=== PATIENT | male | born 1990 | race Caucasian/White ===

== ENCOUNTER 2016-12-02 23:14 | Emergency (ER) | payer OTHER ==
[~2016-12-02] VITALS: Ht 160 cm; Wt 84.1 kg
[2016-12-03] MEDS ORDERED: HYDROmorphone HCL 1 MG/ML SYRINGE (J1170) IM ONE (03:15)
[2016-12-03] MEDS ORDERED: NORCO 5/325MG TABLET (BULK FOR ED) PO ONE (03:15)
[2016-12-03] MEDS ORDERED: OXYCODONE/APAP 5MG/325MG(BULK FOR ED) 1 TABLET PO ONE ×2 (03:30)
[2016-12-03 03:34] VITALS: BP 126/54
--- NOTE | 2016-12-03 08:31 | REP ---
Clinical: Trauma. Technique: AP and axial views of the left clavicle. Findings: Comminuted mid clavicular shaft fracture noted without subcutaneous emphysema or radiodense foreign body. Acromioclavicular joint and glenohumeral joints appear intact. Impression: Closed comminuted fracture of the mid clavicular shaft. Signed by Bishop Schaefer MD 12/03/2016 08:22 A
== END 2016-12-03 03:36 | disposition home or self-care (01) ==
LOC: M ED 23:14
DX: S42.022A Displaced fracture of shaft of left clavicle, initial encounter for closed fracture (principal); V86.59XA Driver of other special all-terrain or other off-road motor vehicle injured in nontraffic accident, initial encounter; Y92.410 Unspecified street and highway as the place of occurrence of the external cause; Y93.89 Activity, other specified; Y99.8 Other external cause status; F17.210 Nicotine dependence, cigarettes, uncomplicated

== ENCOUNTER 2017-04-06 07:30 | Inpatient (IN) | payer OTHER ==
[~2017-04-06] VITALS: Ht 160 cm; Wt 83.9 kg
[~2017-04-06 07:30] MED LIST: OXYC1TAB23 PO
[2017-04-06] MEDS ORDERED: VANCOMYCIN HCL 1,000 MG, VIAL MATE ADAPTER 1 EACH in D5W 250 ML IV ONE (16:00)
[2017-04-06] MEDS ORDERED: LR 1,000 ML IV ONE (16:00)
[2017-04-06 16:02] LABS: MEAN CORPUSCULAR HEMOGLOBIN 31.8 pg (27.0-33.0); MEAN CORPUSCULAR HGB CONC 34.1 g/dl (32.0-36.5); MEAN CORPUSCULAR VOLUME 93.1 fl (80.0-96.0); PLATELET COUNT, AUTOMATED 283 10^3/uL (150-450); RED CELL DISTRIBUTION WIDTH 11.5 % (11.5-14.5); WHITE BLOOD COUNT 9.3 10^3/uL (4.0-10.0)
[2017-04-06 16:33] LABS: ERYTHROCYTE SEDIMENTATION RATE 54 mm/hr (0-15)
[2017-04-06 16:46] LABS: ALBUMIN 3.6 GM/DL (3.2-5.2); ALBUMIN/GLOBULIN RATIO 1.06 (1.00-1.93); ALKALINE PHOSPHATASE 82 U/L (45-117); ALT/SGPT 34 U/L (12-78); ANION GAP 9 MEQ/L (8-16); AST/SGOT 16 U/L (7-37); BILIRUBIN,TOTAL 0.5 MG/DL (0.2-1.0); BLOOD UREA NITROGEN 13 MG/DL (7-18); CALCIUM LEVEL 9.1 MG/DL (8.5-10.1); CARBON DIOXIDE LEVEL 27 MEQ/L (21-32); CHLORIDE LEVEL 106 MEQ/L (98-107); CREATININE FOR GFR 0.83 MG/DL (0.70-1.30); GLOMERULAR FILTRATION RATE > 60.0 (>60); GLUCOSE, FASTING 90 MG/DL (70-105); POTASSIUM SERUM 4.1 MEQ/L (3.5-5.1); SODIUM LEVEL 142 MEQ/L (136-145)
[2017-04-06] MEDS ORDERED: BUPIVACAINE HCL 0.5% 10 ML VIAL As Ordered ONE (17:25)
[2017-04-06] MEDS ORDERED: LIDOCAINE 2% MDV 20 ML VIAL As Ordered ONE (17:26)
[2017-04-06] MEDS ORDERED: BACITRACIN PWD 50,000 UNITS VIAL As Ordered ONE (17:26)
[2017-04-06] MEDS ORDERED: KETOROLAC 30 MG/ML VIAL (J1885) IV PRN (17:30)
[2017-04-06] MEDS ORDERED: ONDANSETRON 4MG/2ML VIAL (J2405) IV PRN ×2 (17:30→19:45)
[2017-04-06] MEDS ORDERED: PROPOFOL 200 MG/20 ML VIAL As Ordered ONE ×2 (17:33→18:27)
[2017-04-06] MEDS ORDERED: LIDOCAINE 2% INJ 100 MG/5 ML SDV (FOR ANES.) As Ordered ONE (17:33)
[2017-04-06] MEDS ORDERED: ONDANSETRON 4MG/2ML VIAL (J2405) As Ordered ONE (17:34)
[2017-04-06] MEDS ORDERED: dexameTHASONE 4 MG/ML 1ML VIAL (J1100) As Ordered ONE (17:34)
[2017-04-06] MEDS ORDERED: MIDAZOLAM INJ 2 MG/2 ML VIAL (J2250) As Ordered ONE (17:34)
[2017-04-06] MEDS ORDERED: fentaNYL 100 MCG/2 ML INJECTION (J3010) As Ordered ONE (17:34)
[2017-04-06] MEDS ORDERED: VANCOMYCIN 1000 MG/20 ML VIAL (J3370) As Ordered ONE (17:56)
[2017-04-06] MEDS ORDERED: HYDROmorphone HCL 2 MG/ML 1ML VIAL (J1170) As Ordered ONE (18:25)
[2017-04-06] MEDS ORDERED: KETOROLAC 60 MG/2 ML VIAL (J1885) As Ordered ONE (19:03)
[2017-04-06] MEDS ORDERED: LR 1,000 ML IV SCH (19:45)
[2017-04-06] MEDS ORDERED: PERCOCET 5MG/325MG TAB PO PRN (19:45)
[2017-04-06] MEDS ORDERED: METOCLOPRAMIDE INJ 10MG/2ML VIAL (J2765) IV PRN (19:45)
[2017-04-06] MEDS: fentaNYL 100 MCG/2 ML INJECTION (J3010) IV PRN ×2 (20:12→20:17)
[2017-04-06 21:00] VITALS: BP 133/81
[2017-04-06] MEDS: DOCUSATE SODIUM 100 MG CAP PO SCH (21:00)
[2017-04-06] MEDS: VANCOMYCIN HCL 1,000 MG, VIAL MATE ADAPTER 1 EACH in D5W/0.2% SODIUM CHLORIDE 250 ML IV SCH (21:29)
[2017-04-06 21:30] VITALS: BP 139/71
[2017-04-06] MEDS: PERCOCET 5MG/325MG TAB PO PRN (21:30)
[2017-04-06 22:00] VITALS: BP 118/61
[2017-04-06] MEDS: NICOTINE 21MG/24HR 1 EA TRANSDERMAL TD SCH (22:59)
[2017-04-06 23:00] VITALS: BP 123/67
[2017-04-07] VITALS (7 sets, daily range): BP systolic 103–132; BP diastolic 58–75
[2017-04-07] MEDS: PERCOCET 5MG/325MG TAB PO PRN ×4 (02:16→22:28)
[2017-04-07] MEDS: VANCOMYCIN HCL 1,000 MG, VIAL MATE ADAPTER 1 EACH in D5W/0.2% SODIUM CHLORIDE 250 ML IV SCH ×2 (06:23→14:24)
--- NOTE | 2017-04-07 09:11 | IPNPDOC ---
Date Seen The patient was seen on 04/07/17. Progress Note SUBJECTIVE: Patient is a 26 y/o male POD1 s/p left clavicle I&D for acute postop wound infection after revision clavicle ORIF. Seen and examined at bedside. No acute overnight events. No complaints. OBJECTIVE PHYSICAL EXAMINATION: VITAL SIGNS: Please see below. GENERAL: well nourished male, NAD HEENT: Normocephalic, atraumatic CARDIOVASCULAR: 2+ radial pulse, BCR all digits LUE. RESPIRATORY: non labored breathing. EXTREMITIES: left shoulder dressing clean, dry, intact. arm in sling. neurovascularly intact all distributions LLE LABORATORY DATA: Please see below. MICROBIOLOGY: Please see below. Cultures pending DVT prophylaxis ordered?: SCDs ASSESSMENT: 26 y/o male s/p above procedure, doing well PLAN: 1. NWB LUE 2. Continue IV vancomycin 1g q8h. will adjust dose based on trough 3. will follow wound cultures. 4. Infectious disease consulted, will await culture data 5. CBC, ESR, CRP tomorrow DISPOSITION: d/c home when abx regimen determined. VS, I&O, 24H, Fishbone Vital Signs/I&O Vital Signs Date Time Temp Pulse Resp B/P (MAP) Pulse Ox O2 Delivery O2 Flow Rate FiO2 04/07/17 06:30 18 04/07/17 02:00 98.0 86 105/64 (78) 95 Room Air 04/06/17 20:10 2 Laboratory Data 24H LABS Laboratory Tests 2 04/06/17 15:49: Nucleated Red Blood Cells % (auto) 0.0, Erythrocyte Sedimentation Rate 54H, Anion Gap 9, Glomerular Filtration Rate > 60.0, Blood Urea Nitrogen 13, Creatinine 0.83, Sodium Level 142, Potassium Level 4.1, Chloride Level 106, Carbon Dioxide Level 27, Calcium Level 9.1, Aspartate Amino Transf (AST/SGOT) 16 , Alanine Aminotransferase (ALT/SGPT) 34, Alkaline Phosphatase 82, Total Bilirubin 0.5, Total Protein 7.0, Albumin 3.6, C-Reactive Protein, Quantitative 12.10H, Albumin/Globulin Ratio 1.06 CBC/BMP Laboratory Tests 04/06/17 15:49 Red Blood Count 4.50, Mean Corpuscular Volume 93.1, Mean Corpuscular Hemoglobin 31.8, Mean Corpuscular Hemoglobin Concent 34.1, Red Cell Distribution Width 11.5 , Calcium Level 9.1, Aspartate Amino Transf (AST/SGOT) 16, Alanine Aminotransferase (ALT/SGPT) 34, Alkaline Phosphatase 82, Total Bilirubin 0.5, Total Protein 7.0, Albumin 3.6 Microbiology Microbiology 04/06/17 Wound Culture, Received Pending 04/06/17 Anaerobic Culture, Received Pending 04/06/17 Wound Culture, Received Pending 04/06/17 Anaerobic Culture, Received Pending HOMER MENDEZ MD Apr 07, 2017 09:11
[2017-04-07] MEDS: CelecoXIB (CeleBREX) 100 MG CAP PO SCH (11:08)
[2017-04-07] MEDS: NICOTINE 21MG/24HR 1 EA TRANSDERMAL TD SCH (11:08)
[2017-04-07] MEDS: DOCUSATE SODIUM 100 MG CAP PO SCH ×2 (11:10→20:11)
--- NOTE | 2017-04-07 12:48 | PHACANCOPD ---
PHARMACY VANCOMYCIN DOSING Pt Demographics Demographics Patient Age:26 , Weight:79.500 , Gender: male Adjusted Body Weight Date: 04/07/17, Adjusted Body Weight: Kg Events Past 24 Hours Events Past 24 Hours: YES: Pending Diagnostics Vancomycin Vancomycin indication: BONE/JOINT INFECTION Vancomycin Target Ranges: 15-20 mcg/ml Vancomycin Load Y/N: Yes Load Dose Date Time Vancomycin Load Dose: 2g Date: 04/06/17 Time: 1g@1822, then 1g@ 22 Vancomycin Dose Date: 04/07/17. Current Vancomycin Dose: [1g IV Q8H] Intermittent Dosing?: No Labs Labs Item Value Date Time White Blood Count 9.3 10^3/uL 04/06/17 1549 Erythrocyte Sedimentation Rate 54 mm/hr H 04/06/17 1549 Creatinine 0.83 MG/DL 04/06/17 1549 C-Reactive Protein, Quantitative 12.10 MG/DL H 04/06/17 1549 Micro Microbiology 04/06/17 Wound Culture, Received Pending 04/06/17 Anaerobic Culture, Received Pending 04/06/17 Wound Culture - Preliminary, Resulted Staphylococcus Aureus 04/06/17 Anaerobic Culture, Resulted Pending Creatinine Clearance Date:04/07/17. Estimated Creatinine Clearance: [>100ml/min]. Pending Labs Vancomycin trough scheduled 04/07/17 @2100 Assessment and Plan Maintaining Current Dose?: Yes Reason for dose change: No Dose Change Pharmacist Note Pharmacist Note Date: 04/07/17. Pharmacist note: Day #2 empiric vancomycin tx initiated with a 2g loading dose followed by a maintenance regimen of 1g IV Q8H for the treatment of a bone/joint infection in the area of the left clavicle - aiming for a goal trough of 15-20mcg/ml. WBC is WNL, ESR and CRP are elevated, and the patient is afebrile. Preliminary wound culture results are growing heavy staph aureus. Final results are still pending. A vancomycin trough has been scheduled for 04/07/17 @2100. We will continue to monitor and make dose adjustments if needed. JOEY BLAKE PHARMACY Apr 07, 2017 12:48
--- NOTE | 2017-04-07 21:45 | PHACANCOPD ---
PHARMACY VANCOMYCIN DOSING Pt Demographics Demographics Patient Age:26 , Weight:79.500 , Gender: male Adjusted Body Weight Date: 04/07/17, Adjusted Body Weight: Kg Events Past 24 Hours Events Past 24 Hours: NO: Dialysis, Diuretic Therapy, Change in CrCl, Fever, Elevation in WBC, Pending Diagnostics, Pending Procedures, Other Vancomycin Vancomycin indication: BONE/JOINT INFECTION Vancomycin Target Ranges: 15-20 mcg/ml Vancomycin Load Y/N: Yes Load Dose Date Time Vancomycin Load Dose: 2g Date: 04/06/17 Time: 1g@1822, then 1g@ 22 Vancomycin Dose Date: 04/07/17. Current Vancomycin Dose: [1g IV Q6H] Intermittent Dosing?: No Labs Labs Item Value Date Time White Blood Count 9.3 10^3/uL 04/06/17 1549 Creatinine 0.83 MG/DL 04/06/17 1549 Blood Urea Nitrogen 13 MG/DL 04/06/17 1549 Vital Signs Label Value Date Time Patient Temperature 99.2 degrees F 04/07/17 1600 Temperature Source Temporal 04/07/17 1600 Micro Microbiology 04/06/17 Wound Culture, Received Pending 04/06/17 Anaerobic Culture, Received Pending 04/06/17 Wound Culture - Preliminary, Resulted Staphylococcus Aureus 04/06/17 Anaerobic Culture, Resulted Pending Creatinine Clearance Date:04/07/17. Estimated Creatinine Clearance: [>100ml/min]. Pending Labs Vancomycin trough scheduled 04/08/17 @1500 Assessment and Plan Maintaining Current Dose?: No Reason for dose change: Trough too low Pharmacist Note Pharmacist Note Date: 04/07/17. Pharmacist note: Trough of 12.8 is below target range. Dose increased to 1000mg q6h with a trough ordered for 04-08 @1500. Will continue to monitor and make adjustments as needed. TERI CARRILLO PHARMACY Apr 07, 2017 21:45
[2017-04-07] MEDS: VANCOMYCIN HCL 1,000 MG, VIAL MATE ADAPTER 1 EACH in D5W 250 ML IV SCH (22:27)
[2017-04-08 00:09] VITALS: BP 110/88
[2017-04-08] MEDS: VANCOMYCIN HCL 1,000 MG, VIAL MATE ADAPTER 1 EACH in D5W 250 ML IV SCH ×4 (04:12→23:54)
[2017-04-08 06:33] LABS: MEAN CORPUSCULAR HEMOGLOBIN 32.1 pg (27.0-33.0); MEAN CORPUSCULAR HGB CONC 34.7 g/dl (32.0-36.5); MEAN CORPUSCULAR VOLUME 92.6 fl (80.0-96.0); PLATELET COUNT, AUTOMATED 295 10^3/uL (150-450); RED CELL DISTRIBUTION WIDTH 11.6 % (11.5-14.5); WHITE BLOOD COUNT 9.8 10^3/uL (4.0-10.0)
[2017-04-08 07:20] LABS: ERYTHROCYTE SEDIMENTATION RATE 48 mm/hr (0-15)
[2017-04-08 08:00] VITALS: BP 108/64
--- NOTE | 2017-04-08 08:55 | IPNPDOC ---
Date Seen The patient was seen on 04/08/17. Progress Note SUBJECTIVE: Patient is a 26 y/o male POD2 s/p left clavicle I&D for acute postop wound infection after revision clavicle ORIF. Seen and examined at bedside. No acute overnight events. No complaints. OBJECTIVE PHYSICAL EXAMINATION: VITAL SIGNS: Please see below. GENERAL: well nourished male, NAD HEENT: Normocephalic, atraumatic CARDIOVASCULAR: 2+ radial pulse, BCR all digits LUE. RESPIRATORY: non labored breathing. EXTREMITIES: left shoulder wound clean, dry, intact. No drainage from wound. Minimal surrounding erythema. No induration. Arm in sling. neurovascularly intact all distributions LLE LABORATORY DATA: CRP 2.3 down from 12 preop. MICROBIOLOGY: Cultures finalized MSSA DVT prophylaxis ordered?: SCDs ASSESSMENT: 26 y/o male s/p above procedure, with clinical and laboratory evidence of resolving post op infection PLAN: 1. NWB LUE 2. Continue IV vancomycin for now. Will adjust home regimen based on ID recommendations. 3. Will order PICC line in anticipation of extended IV abx 4. Repeat CBC, ESR, CRP sunday am if still in house 5. patient may shower. daily dry dressing changes LUE DISPOSITION: d/c home when abx regimen determined. VS, I&O, 24H, Fishbone Vital Signs/I&O Vital Signs Date Time Temp Pulse Resp B/P (MAP) Pulse Ox O2 Delivery O2 Flow Rate FiO2 04/08/17 00:09 99.5 70 18 110/88 (95) 98 Room Air 04/06/17 20:10 2 Laboratory Data 24H LABS Laboratory Tests 2 04/07/17 20:58: Vancomycin Level Trough 12.8 04/08/17 06:19: Nucleated Red Blood Cells % (auto) 0.0, Erythrocyte Sedimentation Rate 48H, C- Reactive Protein, Quantitative 2.46H CBC/BMP Laboratory Tests 04/08/17 06:19 Red Blood Count 3.77 L, Mean Corpuscular Volume 92.6, Mean Corpuscular Hemoglobin 32.1, Mean Corpuscular Hemoglobin Concent 34.7, Red Cell Distribution Width 11.6 Microbiology Microbiology 04/06/17 Wound Culture - Final, Complete Staphylococcus Aureus 04/06/17 Anaerobic Culture - Final, Complete 11/10/17 Wound Culture - Final, Complete Staphylococcus Aureus 04/06/17 Anaerobic Culture - Final, Complete HOMER MENDEZ MD Apr 08, 2017 08:55
[2017-04-08] MEDS: DOCUSATE SODIUM 100 MG CAP PO SCH ×2 (09:47→20:48)
--- NOTE | 2017-04-08 10:36 | RO ---
DATE OF PROCEDURE: 04/06/2017 PREOPERATIVE DIAGNOSIS: Left clavicle acute postop infection. POSTOPERATIVE DIAGNOSIS: Left clavicle acute postop infection. PROCEDURE PERFORMED: Left clavicle irrigation and debridement. SURGEON: Bryce Cabello MD APRICOT PACKER: None. ANESTHESIA: General endotracheal anesthesia and local. ANTIBIOTICS: 1 gram of vancomycin given after culture taken. ESTIMATED BLOOD LOSS: 50 mL. MATERIALS SENT TO THE LABS: Two intraoperative wound culture swabs and one tissue culture from left clavicle. COMPLICATIONS: None. INDICATION FOR PROCEDURE: Ian Trejo is a 26-year-old right hand dominant male who sustained a left clavicle fracture in November of 2016 and underwent open reduction internal fixation (ORIF). His postoperative course was complicated by hardware failure for which he underwent revision clavicle ORIF two weeks ago. He had a small wound dehiscence that was treated with local wound care that progressed and the patient developed acute purulence with wound breakdown. The patient had labs that showed a white count of 9.3, ESR of 54, CRP of 12. He was afebrile with stable vital signs. Given the acute purulent drainage from the wound, I discussed with the patient that this required open irrigation and debridement. We will treat the infection and attempt to retain hardware until the fracture heals. The patient expressed understanding of this and provided informed consent for left clavicle irrigation and debridement. Informed consent was obtained. INTRAOPERATIVE FINDINGS: There was significant purulent discharge that was centered on the area of the mid shaft clavicle a the site of bone grafting with demineralized bone matrix. The fracture fixation remained stable. DESCRIPTION OF PROCEDURE: The patient was positively identified in the preop holding area where the surgical site was marked. He was brought to the operating room where he was placed under general endotracheal anesthesia. He was positioned supine on a regular table with all bony prominences appropriately padded. Sequential compression devices (SCD) were placed on the lower extremities for deep vein thrombosis (DVT) prophylaxis. He was prepped and draped in the usual sterile fashion. A final time out was performed. I incised directly over the previous incision. There was immediate purulence from the central portion of the wound. I obtained cultures and then the patient was given 1 gram of vancomycin. I then performed a thorough irrigation of skin, subcutaneous tissue and fascia. The bone appeared healthy. The demineralized bone matrix that was put in from his previous bone grafting was all removed. Unhealthy skin edges were also sharply debrided with a knife. After thorough debridement, the wound was then irrigated with 12 liters of normal saline. After irrigation, the wound was then closed primarily with a few interrupted #2- 0 PDS sutures in the subcutaneous layer to provide coverage over the plate. The skin was closed with interrupted #3-0 nylon sutures in a horizontal mattress fashion. Sterile dressings were applied and this ended the procedure. I was present and scrubbed in for all portions of the case. POSTOPERATIVE PLAN: The patient will be non-weightbearing to the left upper extremity. He will be admitted to the hospital floor for IV antibiotics. He will remain in the hospital while we await culture results. Infectious disease has been consulted for guidance with antibiotic management. DEJON
[2017-04-08] MEDS: NICOTINE 21MG/24HR 1 EA TRANSDERMAL TD SCH (10:59)
[2017-04-08] MEDS: CelecoXIB (CeleBREX) 100 MG CAP PO SCH (11:00)
[2017-04-08] MEDS: PERCOCET 5MG/325MG TAB PO PRN ×2 (11:01→19:08)
[2017-04-08 16:00] VITALS: BP 112/70
--- NOTE | 2017-04-08 18:56 | PHACANCOPD ---
PHARMACY VANCOMYCIN DOSING Pt Demographics Demographics Patient Age:26 , Weight:79.500 , Gender: male Adjusted Body Weight Date: 04/07/17, Adjusted Body Weight: Kg Events Past 24 Hours Events Past 24 Hours: NO: Dialysis, Diuretic Therapy, Change in CrCl, Fever, Elevation in WBC, Pending Diagnostics, Pending Procedures, Other Vancomycin Vancomycin indication: BONE/JOINT INFECTION Vancomycin Target Ranges: 15-20 mcg/ml Vancomycin Load Y/N: Yes Load Dose Date Time Vancomycin Load Dose: 2g Date: 04/06/17 Time: 1g@1822, then 1g@ 22 Vancomycin Dose Date: 04/08/17. Current Vancomycin Dose: [1g IV Q8H] Intermittent Dosing?: No Labs Labs Item Value Date Time White Blood Count 9.8 10^3/uL 04/08/17 0619 Creatinine 0.83 MG/DL 04/06/17 1549 Blood Urea Nitrogen 13 MG/DL 04/06/17 1549 Vancomycin Level Trough 27.6 UG/ML *H 04/08/17 1505 Vital Signs Label Value Date Time Patient Temperature 98.7 degrees F 04/08/17 1600 Temperature Source Temporal 04/08/17 1600 Micro Microbiology 04/06/17 Wound Culture - Final, Complete Staphylococcus Aureus 04/06/17 Anaerobic Culture - Final, Complete 04/06/17 Wound Culture - Final, Complete Staphylococcus Aureus 04/06/17 Anaerobic Culture - Final, Complete Creatinine Clearance Date:04/07/17. Estimated Creatinine Clearance: [>100ml/min]. Pending Labs Vancomycin trough scheduled 04/09/17 @1500 Assessment and Plan Maintaining Current Dose?: No Reason for dose change: Trough too high Pharmacist Note Pharmacist Note Date: 04/07/17. Pharmacist note: Trough of 27.8 is above target range dose reduced back to 1000mg q8h. Trough ordered for 04-09 @1500. Will continue to monitor and make adjustments as needed. TERI CARRILLO PHARMACY Apr 08, 2017 18:56
[2017-04-08 20:00] VITALS: BP 128/68
[2017-04-09 04:00] VITALS: BP 104/72
[2017-04-09] MEDS: CelecoXIB (CeleBREX) 100 MG CAP PO SCH (07:53)
[2017-04-09] MEDS: VANCOMYCIN HCL 1,000 MG, VIAL MATE ADAPTER 1 EACH in D5W 250 ML IV SCH (07:53)
[2017-04-09] MEDS: NICOTINE 21MG/24HR 1 EA TRANSDERMAL TD SCH (07:53)
[2017-04-09] MEDS: DOCUSATE SODIUM 100 MG CAP PO SCH ×2 (07:54→20:48)
[2017-04-09 08:00] VITALS: BP 115/63
[2017-04-09] MEDS: SODIUM CHLORIDE 0.9% INJ 10 ML SYR IV PRN ×2 (13:58→22:47)
[2017-04-09 16:00] VITALS: BP 161/80
--- NOTE | 2017-04-09 16:26 | IPNPDOC ---
Date Seen The patient was seen on 04/09/17. Progress Note SUBJECTIVE: Patient is a 26 y/o male POD3 s/p left clavicle I&D for acute postop wound infection after revision clavicle ORIF. Seen and examined at bedside. No acute overnight events. No complaints. Patient had PICC line placed today. OBJECTIVE PHYSICAL EXAMINATION: VITAL SIGNS: Please see below. GENERAL: well nourished male, NAD HEENT: Normocephalic, atraumatic CARDIOVASCULAR: 2+ radial pulse, BCR all digits LUE. RESPIRATORY: non labored breathing. EXTREMITIES: left shoulder wound clean, dry, intact. No drainage from wound. Minimal surrounding erythema. No induration. Arm in sling. neurovascularly intact all distributions LLE LABORATORY DATA: CRP 2.3 yesterday down from 12 preop. MICROBIOLOGY: Cultures finalized MSSA DVT prophylaxis ordered?: SCDs ASSESSMENT: 26 y/o male s/p above procedure, with clinical and laboratory evidence of resolving post op infection PLAN: 1. NWB LUE 2. Patient evaluated by ID, vancomycin d/c'd. Changed to Ancef 2g IV q8h. Likely 6 weeks of treatment. 3. Patient counseled that we will aim to retain hardware until fracture has healed provided infection resolves. 4. patient may shower. daily dry dressing changes LUE DISPOSITION: d/c home tomorrow VS, [facility] Vital Signs/I&O Vital Signs Date Time Temp Pulse Resp B/P (MAP) Pulse Ox O2 Delivery O2 Flow Rate FiO2 04/09/17 08:00 98.3 69 16 115/63 (80) 97 Room Air 04/06/17 20:10 2 I&O- Last 24 Hours up to 6 AM 04/10/17 06:02 Intake Total 800 ml Output Total 275 ml Balance 525 ml Laboratory Data 24H LABS Laboratory Tests 2 04/08/17 21:02: Vancomycin Level Trough 24.3H Microbiology Microbiology 04/06/17 Wound Culture - Final, Complete Staphylococcus Aureus 04/06/17 Anaerobic Culture - Final, Complete 04/06/17 Wound Culture - Final, Complete Staphylococcus Aureus 04/06/17 Anaerobic Culture - Final, Complete HOMER MENDEZ MD Apr 09, 2017 16:27
--- NOTE | 2017-04-09 17:00 | REP ---
Procedure: PICC line insertion with Mauro-Cameron The procedure was performed under the direct supervision of Dr. Mari. The risks and benefits of the procedure were explained to the patient and informed consent was obtained. The right basilic vein was localized using ultrasound guidance. The skin was prepped and draped in a sterile fashion. 2% lidocaine was used as a local anesthetic. Using ultrasound guidance the basilic vein was cannulated and a 0.018 guidewire was inserted and advanced to the SVC using fluoroscopic guidance. The needle was removed and a 4.5 Iranian dilator and peel-away sheath was inserted over the guide wire. A 4.5 Iranian single lumen catheter was cut to length of 42 cm. The dilator was removed and the catheter was inserted over the guide wire with the tip ending in the SVC. The peel-away sheath was removed and the catheter was flushed with heparinized saline as per Hospital protocol. The catheter was affixed to the skin and a sterile dressing was applied. The the patient tolerated the procedure well and there were no immediate complications. 0.2 minutes of fluoro time was utilized for this procedure. Reviewed by ROSSY Rossi 04/09/2017 04:49 PSigned by José Miguel Mari MD 04/09/2017 04:51 P
[2017-04-09] MEDS: SODIUM CHLORIDE 0.9% INJ 10 ML SYR IV SCH (18:17)
[2017-04-09] MEDS: PERCOCET 5MG/325MG TAB PO PRN (18:59)
[2017-04-10] VITALS: BP 132/74
--- NOTE | 2017-04-10 00:04 | CR ---
DATE: 04/09/2017 INFECTIOUS DISEASE CONSULTATION Asked to consult by Dr. Cabello for evaluation of postoperative wound infection. 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 The patient underwent open reduction, internal fixation that was complicated by hardware failure. He underwent revision of open reduction internal fixation at the end of February in [facility]. The patient noticed a wound dehiscence with purulent discharge and increasing pain. C-reactive protein (CRP) and sedimentation rate were elevated. The patient was taken to the operating room on 04/06/2017 where he had irrigation and debridement with retention of the hardware because the fracture had not healed. The patient was started on intravenous (IV) vancomycin and cultures were positive for methicillin-sensitive Staphylococcus aureus (MSSA) . He has been afebrile. He denies any nausea, vomiting or diarrhea. No abdominal pain. No fever or chills. The patient had a peripherally inserted central catheter (PICC) line placed today, and he is anxious to go home. ALLERGIES: ALMOND, COCONUT, NUTS, PEANUTS and PECANS MEDICATIONS: - heparin through the PICC line - vancomycin 1 gram IV every 8 hours - Celebrex 200 mg by mouth daily - Colace 100 mg by mouth twice a day - Zofran 4 mg IV every 6 hours as needed - Percocet 1-2 tablets every 6 hours as needed - Ketorolac 30 mg IV every 6 hours as needed - nicotine patch one daily. SOCIAL HISTORY: He is a soldier. He is . He has one child. He drinks socially and smokes a pack of cigarettes a day. He is willing to try to taper down. LABORATORY DATA: White count was 9.3 on admission, today 9.8, hemoglobin 12.1, hematocrit 34.9, platelets 48 down from 54, sodium 142, potassium 4.1, chloride 106, bicarbonate 27, BUN 13, creatinine 0.8, glucose 90m calcium 9.1, AST 16, ALT 34, alkaline phosphatase 82, CRP on admission was 12.1 down to 2.46, albumin 3.6. Vancomycin level on 04/08/2017 was 27.6, today it was 24.3. Wound cultures were positive for methicillin-sensitive Staphylococcus aureus (MSSA). IMAGING STUDIES: PICC line was placed on 04/09/2017 with no complication. On physical exam, temperature is 98.2, pulse 68, respirations 18, blood pressure 161/80, oxygen saturation 96% on room air. Heart: Normal S1, S2 with no murmurs, rubs or gallops. Lungs are clear. No wheezes, rales or rhonchi. Abdomen: Soft, nontender. No hepatosplenomegaly. Extremities: No clubbing, cyanosis or edema. Right arm has a PICC line. Left shoulder has an incision along the clavicle measuring about 15 cm, sutures in place. There is a tattoo along the incision. There is minimal tenderness and warmth. There is no drainage. IMPRESSION: Clavicular fracture in November of 2016 with hardware failure, status post second open reduction internal fixation (ORIF) done at the end of February, admitted now with postoperative wound infection 2 weeks later with culture positive for MSSA. The hardware was not removed because the fracture is not healed yet. Therefore, we will have to treat him with rifampin as well to treat the biofilm. PLAN: Discontinue IV vancomycin, start IV cefazolin 2 grams every 8 hours, add rifampin 600 mg by mouth daily. The patient will be treated for presumptive septic arthritis/osteomyelitis of the wound with 4 weeks of IV antibiotic, probably follow with some oral antibiotic as well depending on clinical improvement, sedimentation rate and CRP. Will monitor CBC, CRP, sedimentation rate weekly. The patient will follow up in my office in 2-3 weeks. I have consulted [facility] to help assist us with home IV antibiotics in anticipation for discharge home tomorrow.
[2017-04-10] MEDS: SODIUM CHLORIDE 0.9% INJ 10 ML SYR IV PRN (04:41)
[2017-04-10] MEDS: SODIUM CHLORIDE 0.9% INJ 10 ML SYR IV SCH (06:00)
[2017-04-10] MEDS ORDERED: CELE100C PO (07:38)
[2017-04-10] MEDS ORDERED: NICO21PAT TD (07:38)
[2017-04-10] MEDS ORDERED: PERCOCET PO (07:38)
[2017-04-10 08:00] VITALS: BP 116/72
[2017-04-10] MEDS: NICOTINE 21MG/24HR 1 EA TRANSDERMAL TD SCH (08:12)
[2017-04-10] MEDS: PERCOCET 5MG/325MG TAB PO PRN (08:12)
[2017-04-10] MEDS: CelecoXIB (CeleBREX) 100 MG CAP PO SCH (08:12)
[2017-04-10] MEDS: DOCUSATE SODIUM 100 MG CAP PO SCH (08:13)
--- NOTE | 2017-04-10 16:14 | DS.PDOC ---
Discharge Summary General Date of Admission Apr 06, 2017 at 15:28 Date of Discharge 04/10/2017 Attending Physician: HOMER MENDEZ MD Specialist/Consultants Involve: Danny Montejo MD Discharge Summary PROCEDURES PERFORMED DURING STAY: Left clavicle irrigation and debridement. ADMITTING DIAGNOSES: 1. Left clavicle post op hardware infection DISCHARGE DIAGNOSES: 1.same as above COMPLICATIONS/CHIEF COMPLAINT: Left Clavicle Wound Infection. 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 Patient developed wound dehiscence and subsequent acute purulent drainage 10 days after procedure and was admitted for treatment of this complication. HOSPITAL COURSE: Patient was admitted to the hospital on 06 Apr 2017 and underwent uneventful left clavicle I&D. He was admitted to the hospital for IV antibiotics and awaiting culture results. On HD 3, cultures finalized with MSSA. Patient had a PICC placed for emt intermediate antibiotic treatment. Infections disease was consulted for abx management. On POD 2 (HD3), patient has well healing wound, labratory markers had significantly improved, and patient was clinically better. He was afebrile and had no acute events during the entirety of the hospitalization. Home health IV antibiotic infusion service was established and he was discharged home on POD4 (HD 5) without complication. DISCHARGE MEDICATIONS: Please see below. ALLERGIES: Please see below. PHYSICAL EXAMINATION ON DISCHARGE: VITAL SIGNS: Please see below. GENERAL: AAOx3, NAD CARDIOVASCULAR EXAMINATION: 2+ radial pulse, BCR all digits LUE RESPIRATORY EXAMINATION: non labored breathing EXTREMITIES: L shoulder/clavicle wound well healed, c/d/i with no drainage from wound or surrounding erythema. Shoulder ROM limited secondary to pain. LABORATORY DATA: Please see below. IMAGING: no imaging PROGNOSIS: good ACTIVITY: [As tolerated]. DIET: regular. DISCHARGE PLAN: home with home health IV antibiotics DISPOSITION: 01 Home, with home health. DISCHARGE INSTRUCTIONS: follow up with Dr. Mendez as scheduled follow up with Dr. Montejo as scheduled PICC care as instructed daily dry dressing clanged for L shoulder DISCHARGE CONDITION: Stable. Vital Signs/I&Os Vital Signs Date Time Temp Pulse Resp B/P (MAP) Pulse Ox O2 Delivery O2 Flow Rate FiO2 04/10/17 08:12 18 04/10/17 08:00 97.9 62 116/72 (87) 100 Room Air 04/06/17 20:10 2 Microbiology Microbiology 04/06/17 Wound Culture - Final, Complete Staphylococcus Aureus 04/06/17 Anaerobic Culture - Final, Complete 04/06/17 Wound Culture - Final, Complete Staphylococcus Aureus 04/06/17 Anaerobic Culture - Final, Complete Discharge Medications Scheduled Celecoxib (Celebrex) 100 Mg Cap, 200 MG PO DAILY Nicotine (Nicotine Transdermal Syst) 21 Mg/24 Hr Dis, 1 PATCH TD DAILY Scheduled PRN Oxycodone/Acetaminophen (Oxycodone/Acetaminophen 5-325 mg) 1 Tab Tab, 1 TAB PO Q4HP PRN for PAIN, (Reported) Allergies Coded Allergies: [place] (Verified Allergy, Severe, ANGIOEDEMA, 04/06/17) Coconut (Verified Allergy, Severe, ANGIOEDEMA, 04/06/17) NUTS (Verified Allergy, Severe, ANGIOEDEMA, 04/06/17) Peanut (Verified Allergy, Severe, ANGIOEDEMA, 04/06/17) Pecan (Verified Allergy, Severe, ANGIOEDEMA, 04/06/17) HOMER MENDEZ MD Apr 10, 2017 16:14
[2017-04-10] MEDS ORDERED: RIFA300C3 PO (17:40)
== END 2017-04-10 08:50 | disposition home or self-care (01) | DRG 561 ==
LOC: M OR 15:28 → M PED 20:58
PROVIDERS: ADMIT Orthopaedic Surgery; ATTEND Orthopaedic Surgery
PROC: 0JBF3ZZ Excision of Left Upper Arm Subcutaneous Tissue and Fascia, Percutaneous Approach (ICD-10-PCS; principal; 2017-04-06 07:30)
DX: T84.69XA Infection and inflammatory reaction due to internal fixation device of other site, initial encounter (principal); Y83.1 Surgical operation with implant of artificial internal device as the cause of abnormal reaction of the patient, or of later complication, without mention of misadventure at the time of the procedure; Z91.018 Allergy to other foods; Z91.010 Allergy to peanuts; Z79.899 Other long term (current) drug therapy

== ENCOUNTER → 2017-04-16 | Outpatient (REF) | payer OTHER ==
[~2017-04-16] MED LIST changes: +CELE100C PO; +NICO21PAT TD; +PERCOCET PO; +RIFA300C3 PO
[2017-04-16 15:27] LABS: BASO # 0.1 10^3/uL (0.0-0.2); BASO % 0.7 % (0.0-1.0); EOS # 0.3 10^3/uL (0.0-0.50); EOS % 2.9 % (0.0-3.0); IMMATURE GRANULOCYTE % 0.6 % (0-0); LYMPH # 2.7 10^3/uL (1.5-6.5); LYMPH % 29.8 % (24.0-44.0); MEAN CORPUSCULAR HEMOGLOBIN 31.7 pg (27.0-33.0); MEAN CORPUSCULAR HGB CONC 34.7 g/dl (32.0-36.5); MEAN CORPUSCULAR VOLUME 91.4 fl (80.0-96.0); MONO # 0.5 10^3/uL (0.0-0.8); MONO % 5.7 % (0.0-5.0); NEUTROPHILS # 5.5 10^3/uL (1.8-7.7); NEUTROPHILS % 60.3 % (36.0-66.0); PLATELET COUNT, AUTOMATED 409 10^3/uL (150-450); RED CELL DISTRIBUTION WIDTH 11.5 % (11.5-14.5); WHITE BLOOD COUNT 9.1 10^3/uL (4.0-10.0)
[2017-04-16 15:47] LABS: ERYTHROCYTE SEDIMENTATION RATE 41 mm/hr (0-15)
[2017-04-16 15:54] LABS: ANION GAP 8 MEQ/L (8-16); BLOOD UREA NITROGEN 14 MG/DL (7-18); CALCIUM LEVEL 9.4 MG/DL (8.5-10.1); CARBON DIOXIDE LEVEL 26 MEQ/L (21-32); CHLORIDE LEVEL 106 MEQ/L (98-107); CREATININE FOR GFR 0.69 MG/DL (0.70-1.30); GLOMERULAR FILTRATION RATE > 60.0 (>60); GLUCOSE, FASTING 81 MG/DL (70-105); POTASSIUM SERUM 4.2 MEQ/L (3.5-5.1); SODIUM LEVEL 140 MEQ/L (136-145)
== END ==
LOC: M LAB REF 15:08
PROVIDERS: ATTEND Internal Medicine Infectious Disease
DX: Z79.2 Long term (current) use of antibiotics (principal)
CPT/HCPCS: 80048; 85025; 85652; 86140; G0463

== ENCOUNTER → 2017-04-23 | Outpatient (REF) | payer OTHER ==
[2017-04-23 16:25] LABS: BASO # 0.1 10^3/uL (0.0-0.2); BASO % 0.9 % (0.0-1.0); EOS # 0.4 10^3/uL (0.0-0.50); IMMATURE GRANULOCYTE % 0.3 % (0-0); LYMPH # 2.3 10^3/uL (1.5-6.5); LYMPH % 33.6 % (24.0-44.0); MEAN CORPUSCULAR HEMOGLOBIN 32.2 pg (27.0-33.0); MEAN CORPUSCULAR HGB CONC 34.9 g/dl (32.0-36.5); MEAN CORPUSCULAR VOLUME 92.2 fl (80.0-96.0); MONO # 0.5 10^3/uL (0.0-0.8); MONO % 7.3 % (0.0-5.0); NEUTROPHILS # 3.6 10^3/uL (1.8-7.7); NEUTROPHILS % 51.9 % (36.0-66.0); PLATELET COUNT, AUTOMATED 425 10^3/uL (150-450); RED CELL DISTRIBUTION WIDTH 11.9 % (11.5-14.5); WHITE BLOOD COUNT 6.8 10^3/uL (4.0-10.0)
[2017-04-23 16:53] LABS: ALBUMIN 3.7 GM/DL (3.2-5.2); ALBUMIN/GLOBULIN RATIO 1.12 (1.00-1.93); ALKALINE PHOSPHATASE 94 U/L (45-117); ALT/SGPT 18 U/L (12-78); ANION GAP 7 MEQ/L (8-16); AST/SGOT 15 U/L (7-37); BILIRUBIN,TOTAL 0.6 MG/DL (0.2-1.0); BLOOD UREA NITROGEN 10 MG/DL (7-18); CALCIUM LEVEL 8.9 MG/DL (8.5-10.1); CARBON DIOXIDE LEVEL 27 MEQ/L (21-32); CHLORIDE LEVEL 106 MEQ/L (98-107); CREATININE FOR GFR 0.72 MG/DL (0.70-1.30); GLOMERULAR FILTRATION RATE > 60.0 (>60); GLUCOSE, FASTING 96 MG/DL (70-105); POTASSIUM SERUM 4.1 MEQ/L (3.5-5.1); SODIUM LEVEL 140 MEQ/L (136-145)
[2017-04-23 17:26] LABS: ERYTHROCYTE SEDIMENTATION RATE 14 mm/hr (0-15)
== END ==
LOC: M LAB REF 15:54
PROVIDERS: ATTEND Internal Medicine Infectious Disease
DX: T81.4XXA Infection following a procedure, initial encounter (principal); T81.31XA Disruption of external operation (surgical) wound, not elsewhere classified, initial encounter

== ENCOUNTER → 2017-04-29 | Outpatient (REF) | payer OTHER ==
[2017-04-29 17:30] LABS: BASO % 0.5 % (0.0-1.0); EOS # 0.3 10^3/uL (0.0-0.50); EOS % 5.5 % (0.0-3.0); IMMATURE GRANULOCYTE % 0.2 % (0-0); LYMPH # 2.3 10^3/uL (1.5-6.5); LYMPH % 37.1 % (24.0-44.0); MEAN CORPUSCULAR HEMOGLOBIN 32.6 pg (27.0-33.0); MEAN CORPUSCULAR HGB CONC 35.1 g/dl (32.0-36.5); MONO # 0.6 10^3/uL (0.0-0.8); MONO % 10.2 % (0.0-5.0); NEUTROPHILS # 2.9 10^3/uL (1.8-7.7); NEUTROPHILS % 46.5 % (36.0-66.0); PLATELET COUNT, AUTOMATED 335 10^3/uL (150-450); RED CELL DISTRIBUTION WIDTH 11.9 % (11.5-14.5); WHITE BLOOD COUNT 6.2 10^3/uL (4.0-10.0)
[2017-04-29 17:32] LABS: ANION GAP 5 MEQ/L (8-16); BLOOD UREA NITROGEN 14 MG/DL (7-18); CALCIUM LEVEL 8.9 MG/DL (8.5-10.1); CARBON DIOXIDE LEVEL 31 MEQ/L (21-32); CHLORIDE LEVEL 105 MEQ/L (98-107); GLOMERULAR FILTRATION RATE > 60.0 (>60); GLUCOSE, FASTING 105 MG/DL (70-105); SODIUM LEVEL 141 MEQ/L (136-145)
[2017-04-29 18:11] LABS: ERYTHROCYTE SEDIMENTATION RATE 9 mm/hr (0-15)
== END ==
LOC: M LAB REF 16:57
PROVIDERS: ATTEND Internal Medicine Infectious Disease
DX: T81.4XXA Infection following a procedure, initial encounter (principal); T81.31XA Disruption of external operation (surgical) wound, not elsewhere classified, initial encounter; Y82.9 Unspecified medical devices associated with adverse incidents

== ENCOUNTER 2017-06-11 19:03 | Inpatient (IN) | payer OTHER ==
[2017-06-11] MEDS: KETOROLAC 30 MG/ML VIAL (J1885) IV (19:45)
[2017-06-11 19:49] LABS: BASO # 0.1 10^3/uL (0.0-0.2); BASO % 0.4 % (0.0-1.0); EOS # 0.4 10^3/uL (0.0-0.50); EOS % 2.8 % (0.0-3.0); HEMATOCRIT 42.1 % (42.0-52.0); HEMOGLOBIN 15.2 g/dl (14.0-18.0); IMMATURE GRANULOCYTE % 0.2 % (0-0); LYMPH # 2.5 10^3/uL (1.5-6.5); LYMPH % 18.7 % (24.0-44.0); MEAN CORPUSCULAR HEMOGLOBIN 32.6 pg (27.0-33.0); MEAN CORPUSCULAR HGB CONC 36.1 g/dl (32.0-36.5); MEAN CORPUSCULAR VOLUME 90.3 fl (80.0-96.0); MONO % 7.4 % (0.0-5.0); NEUTROPHILS # 9.6 10^3/uL (1.8-7.7); NEUTROPHILS % 70.5 % (36.0-66.0); PLATELET COUNT, AUTOMATED 276 10^3/uL (150-450); RED BLOOD COUNT 4.66 10^6/uL (4.30-6.10); RED CELL DISTRIBUTION WIDTH 11.8 % (11.5-14.5); WHITE BLOOD COUNT 13.6 10^3/uL (4.0-10.0)
[2017-06-11 20:25] LABS: ANION GAP 8 MEQ/L (8-16); BLOOD UREA NITROGEN 11 MG/DL (7-18); CALCIUM LEVEL 8.9 MG/DL (8.5-10.1); CARBON DIOXIDE LEVEL 24 MEQ/L (21-32); CHLORIDE LEVEL 108 MEQ/L (98-107); GLOMERULAR FILTRATION RATE > 60.0 (>60); GLUCOSE, FASTING 131 MG/DL (70-105); POTASSIUM SERUM 3.7 MEQ/L (3.5-5.1); SODIUM LEVEL 140 MEQ/L (136-145)
[2017-06-11 20:26] LABS: ERYTHROCYTE SEDIMENTATION RATE 5 mm/hr (0-15)
[2017-06-11 20:48] LABS: LACTIC ACID SEPSIS PROTOCOL 2.1 MMOL/L (0.4-2.0)
[2017-06-11] MEDS: VANCOMYCIN HCL 1,000 MG, VIAL MATE ADAPTER 1 EACH in D5W 250 ML IV (21:30)
[2017-06-11] MEDS: MORPHINE 4 MG/ML 1ML SYRINGE IV (21:30)
[2017-06-11] MEDS ORDERED: ACETAMINOPHEN TAB 650MG DOSE (2X325MG) PO (22:45)
[2017-06-11] MEDS ORDERED: ONDANSETRON 4MG/2ML VIAL (J2405) IV (22:45)
[2017-06-12] MEDS ORDERED: traMADol 50 MG TAB PO (01:45)
[2017-06-12 07:03] LABS: HEMATOCRIT 40.4 % (42.0-52.0); HEMOGLOBIN 14.2 g/dl (14.0-18.0); MEAN CORPUSCULAR HEMOGLOBIN 31.8 pg (27.0-33.0); MEAN CORPUSCULAR HGB CONC 35.1 g/dl (32.0-36.5); MEAN CORPUSCULAR VOLUME 90.6 fl (80.0-96.0); PLATELET COUNT, AUTOMATED 246 10^3/uL (150-450); RED BLOOD COUNT 4.46 10^6/uL (4.30-6.10); RED CELL DISTRIBUTION WIDTH 11.7 % (11.5-14.5); WHITE BLOOD COUNT 10.7 10^3/uL (4.0-10.0)
[2017-06-12 07:10] LABS: CHLORIDE LEVEL 107 MEQ/L (98-107); POTASSIUM SERUM 3.8 MEQ/L (3.5-5.1); SODIUM LEVEL 139 MEQ/L (136-145)
[2017-06-12 07:17] LABS: ANION GAP 6 MEQ/L (8-16); BLOOD UREA NITROGEN 12 MG/DL (7-18); CALCIUM LEVEL 8.7 MG/DL (8.5-10.1); CARBON DIOXIDE LEVEL 26 MEQ/L (21-32); CREATININE FOR GFR 0.75 MG/DL (0.70-1.30); GLOMERULAR FILTRATION RATE > 60.0 (>60); GLUCOSE, FASTING 100 MG/DL (70-105); MAGNESIUM LEVEL 2.1 MG/DL (1.8-2.4)
[2017-06-12] MEDS: MORPHINE 30 MG TAB **MSIR PO (08:05)
[2017-06-12] MEDS: INFLUENZA QUADRIVALENT PF VACCINE 0.5ML SYRINGE (90686) IM (08:06)
[2017-06-12] MEDS: AMPICILLIN SOD 2 GM in APPROPRIATE DILUENT 20 ML IV (10:25)
[2017-06-12] MEDS: PERCOCET 5MG/325MG TAB PO ×3 (10:27→22:47)
[2017-06-12] MEDS: MORPHINE 2 MG/ML 1ML SYRINGE IV ×2 (13:14→17:14)
[2017-06-12] MEDS: VANCOMYCIN HCL 1,000 MG, VIAL MATE ADAPTER 1 EACH in D5W 250 ML IV ×3 (13:15→19:05)
[2017-06-12] MEDS: NICOTINE 21MG/24HR 1 EA TRANSDERMAL TD (13:34)
[2017-06-12 13:49] LABS: C REACTIVE PROTEIN QUANTITATIV 2.41 MG/DL (0.00-0.30)
[2017-06-12 14:11] LABS: ERYTHROCYTE SEDIMENTATION RATE 9 mm/hr (0-15)
[2017-06-12] MEDS ORDERED: PERCOCET 5MG/325MG TAB PO ×2 (15:15→18:00)
[2017-06-12] MEDS: KETOROLAC 30 MG/ML VIAL (J1885) IV ×2 (19:02→23:50)
[2017-06-13] MEDS: NICOTINE 21MG/24HR 1 EA TRANSDERMAL TD ×2 (00:01→10:29)
[2017-06-13] MEDS: KETOROLAC 30 MG/ML VIAL (J1885) IV ×3 (06:00→21:46)
[2017-06-13 07:02] LABS: HEMATOCRIT 40.7 % (42.0-52.0); HEMOGLOBIN 14.1 g/dl (14.0-18.0); MEAN CORPUSCULAR HEMOGLOBIN 32.2 pg (27.0-33.0); MEAN CORPUSCULAR HGB CONC 34.6 g/dl (32.0-36.5); MEAN CORPUSCULAR VOLUME 92.9 fl (80.0-96.0); PLATELET COUNT, AUTOMATED 218 10^3/uL (150-450); RED BLOOD COUNT 4.38 10^6/uL (4.30-6.10); RED CELL DISTRIBUTION WIDTH 11.7 % (11.5-14.5); WHITE BLOOD COUNT 8.4 10^3/uL (4.0-10.0)
[2017-06-13 07:29] LABS: ANION GAP 4 MEQ/L (8-16); BLOOD UREA NITROGEN 18 MG/DL (7-18); C REACTIVE PROTEIN QUANTITATIV 9.89 MG/DL (0.00-0.30); CALCIUM LEVEL 8.5 MG/DL (8.5-10.1); CARBON DIOXIDE LEVEL 28 MEQ/L (21-32); CHLORIDE LEVEL 108 MEQ/L (98-107); CREATININE FOR GFR 0.71 MG/DL (0.70-1.30); GLOMERULAR FILTRATION RATE > 60.0 (>60); GLUCOSE, FASTING 93 MG/DL (70-105); MAGNESIUM LEVEL 2.2 MG/DL (1.8-2.4); POTASSIUM SERUM 4.7 MEQ/L (3.5-5.1); SODIUM LEVEL 140 MEQ/L (136-145)
[2017-06-13] MEDS ORDERED: PROPOFOL 200 MG/20 ML VIAL As Ordered (07:54)
[2017-06-13] MEDS ORDERED: ROCURONIUM BROMIDE 50 MG/5 ML VIAL As Ordered (07:54)
[2017-06-13] MEDS ORDERED: GLYCOPYRROLATE INJ 0.2 MG/ML 2 ML VIAL As Ordered ×2 (07:54)
[2017-06-13] MEDS ORDERED: NEOSTIGMINE 10 MG/10 ML VIAL (J2710) As Ordered (07:54)
[2017-06-13] MEDS ORDERED: LIDOCAINE 2% INJ 100 MG/5 ML SDV (FOR ANES.) As Ordered (07:54)
[2017-06-13] MEDS ORDERED: fentaNYL 250 MCG/5 ML INJECTION (J3010) As Ordered (07:54)
[2017-06-13] MEDS ORDERED: MIDAZOLAM INJ 2 MG/2 ML VIAL (J2250) As Ordered (07:54)
[2017-06-13] MEDS ORDERED: ONDANSETRON 4MG/2ML VIAL (J2405) As Ordered (07:55)
[2017-06-13] MEDS ORDERED: METOCLOPRAMIDE INJ 10MG/2ML VIAL (J2765) As Ordered (07:55)
[2017-06-13] MEDS ORDERED: KETOROLAC 60 MG/2 ML VIAL (J1885) As Ordered (07:58)
[2017-06-13] MEDS ORDERED: DESFLURANE 240 ML INHALANT As Ordered (08:20)
[2017-06-13] MEDS: ceFAZolin 2 GM/D5W 50 ML IV BAG (J0690 PER 500MG) As Ordered (08:25)
[2017-06-13] MEDS: LIDOCAINE 1% SDV INJ 30 ML VIAL As Ordered (09:16)
[2017-06-13] MEDS: BUPIVACAINE HCL 0.25% 30 ML VIAL As Ordered (09:18)
[2017-06-13] MEDS ORDERED: PERCOCET 5MG/325MG TAB As Ordered ×2 (09:47→10:04)
[2017-06-13] MEDS: PERCOCET 5MG/325MG TAB PO ×3 (09:58→21:46)
[2017-06-13] MEDS ORDERED: MORPHINE 10 MG/ML 1ML VIAL IV (10:00)
[2017-06-13] MEDS ORDERED: METOCLOPRAMIDE INJ 10MG/2ML VIAL (J2765) IV (10:00)
[2017-06-13] MEDS ORDERED: PERCOCET 5MG/325MG TAB PO (10:00)
[2017-06-13] MEDS ORDERED: ONDANSETRON 4MG/2ML VIAL (J2405) IV (10:00)
[2017-06-13] MEDS ORDERED: fentaNYL 100 MCG/2 ML INJECTION (J3010) IV (10:00)
[2017-06-13] MEDS: LR 1,000 ML IV (10:29)
[2017-06-13 11:24] LABS: VANCOMYCIN LEVEL TROUGH 6.2 UG/ML (10.0-20.0)
[2017-06-14] MEDS: KETOROLAC 30 MG/ML VIAL (J1885) IV ×4 (03:49→21:21)
[2017-06-14] MEDS: NICOTINE 21MG/24HR 1 EA TRANSDERMAL TD (09:00)
[2017-06-14] MEDS: PERCOCET 5MG/325MG TAB PO ×2 (14:49→22:59)
[2017-06-15] MEDS: KETOROLAC 30 MG/ML VIAL (J1885) IV ×2 (03:33→09:58)
[2017-06-15 07:20] LABS: HEMATOCRIT 38.4 % (42.0-52.0); MEAN CORPUSCULAR HEMOGLOBIN 31.6 pg (27.0-33.0); MEAN CORPUSCULAR HGB CONC 33.9 g/dl (32.0-36.5); MEAN CORPUSCULAR VOLUME 93.2 fl (80.0-96.0); PLATELET COUNT, AUTOMATED 278 10^3/uL (150-450); RED BLOOD COUNT 4.12 10^6/uL (4.30-6.10); RED CELL DISTRIBUTION WIDTH 11.6 % (11.5-14.5); WHITE BLOOD COUNT 5.4 10^3/uL (4.0-10.0)
[2017-06-15 07:42] LABS: C REACTIVE PROTEIN QUANTITATIV 2.72 MG/DL (0.00-0.30)
[2017-06-15 09:05] LABS: ERYTHROCYTE SEDIMENTATION RATE 31 mm/hr (0-15)
== END 2017-06-15 11:48 | disposition home or self-care (01) | DRG 494 ==
LOC: M PED 06-12 00:27 → M ED 19:03 → M ED INP 22:41
PROC: 0PBG0ZZ Excision of Left Humeral Shaft, Open Approach (ICD-10-PCS; principal; 2017-06-13 07:35)
PROC: 0PPG04Z Removal of Internal Fixation Device from Left Humeral Shaft, Open Approach (ICD-10-PCS; 2017-06-13 07:35)
DX: T84.611A Infection and inflammatory reaction due to internal fixation device of left humerus, initial encounter (principal); Z91.010 Allergy to peanuts; Z91.018 Allergy to other foods; F17.210 Nicotine dependence, cigarettes, uncomplicated; Y83.1 Surgical operation with implant of artificial internal device as the cause of abnormal reaction of the patient, or of later complication, without mention of misadventure at the time of the procedure

== ENCOUNTER 2017-06-16 13:00 | Outpatient (CLI) | payer OTHER ==
[2017-06-16] MEDS: DALBAVANCIN 1,500 MG in D5W 500 ML IV (15:10)
== END 2017-06-16 16:11 | disposition home or self-care (01) ==
LOC: M OPCLIPED 13:00 → M PED 15:13 → M OPCLIPED 15:13 → M PED 13:00 → M INFU 16:11
DX: L03.114 Cellulitis of left upper limb (principal); A49.01 Methicillin susceptible Staphylococcus aureus infection, unspecified site; Z91.010 Allergy to peanuts; Z91.018 Allergy to other foods
CPT/HCPCS: 96365

== ENCOUNTER 2017-07-03 13:53 | Outpatient (CLI) | payer OTHER ==
[2017-07-03 14:34] LABS: BASO # 0.1 10^3/uL (0.0-0.2); BASO % 0.7 % (0.0-1.0); EOS # 0.3 10^3/uL (0.0-0.50); EOS % 3.5 % (0.0-3.0); HEMATOCRIT 41.2 % (42.0-52.0); HEMOGLOBIN 14.6 g/dl (14.0-18.0); IMMATURE GRANULOCYTE % 0.1 % (0-0); LYMPH # 2.3 10^3/uL (1.5-6.5); LYMPH % 29.8 % (24.0-44.0); MEAN CORPUSCULAR HGB CONC 35.4 g/dl (32.0-36.5); MEAN CORPUSCULAR VOLUME 90.4 fl (80.0-96.0); MONO # 0.5 10^3/uL (0.0-0.8); NEUTROPHILS # 4.5 10^3/uL (1.8-7.7); NEUTROPHILS % 58.9 % (36.0-66.0); PLATELET COUNT, AUTOMATED 281 10^3/uL (150-450); RED BLOOD COUNT 4.56 10^6/uL (4.30-6.10); RED CELL DISTRIBUTION WIDTH 11.6 % (11.5-14.5); WHITE BLOOD COUNT 7.7 10^3/uL (4.0-10.0)
[2017-07-03] MEDS: DALBAVANCIN 1,500 MG in D5W 250 ML IV (14:45)
[2017-07-03 15:08] LABS: ANION GAP 5 MEQ/L (8-16); BLOOD UREA NITROGEN 14 MG/DL (7-18); C REACTIVE PROTEIN QUANTITATIV 0.59 MG/DL (0.00-0.30); CALCIUM LEVEL 9.1 MG/DL (8.5-10.1); CARBON DIOXIDE LEVEL 27 MEQ/L (21-32); CHLORIDE LEVEL 107 MEQ/L (98-107); CREATININE FOR GFR 0.77 MG/DL (0.70-1.30); GLOMERULAR FILTRATION RATE > 60.0 (>60); GLUCOSE, FASTING 97 MG/DL (70-100); POTASSIUM SERUM 3.9 MEQ/L (3.5-5.1); SODIUM LEVEL 139 MEQ/L (136-145)
[2017-07-03 15:18] LABS: ERYTHROCYTE SEDIMENTATION RATE 8 mm/hr (0-15)
== END 2017-07-03 16:15 | disposition home or self-care (01) ==
LOC: M INFU 13:53
DX: M86.112 Other acute osteomyelitis, left shoulder (principal); B95.8 Unspecified staphylococcus as the cause of diseases classified elsewhere; Z91.018 Allergy to other foods; Z79.899 Other long term (current) drug therapy
CPT/HCPCS: J0875

== ENCOUNTER → 2017-07-26 | Outpatient (REF) | payer OTHER ==
[2017-07-26 16:06] LABS: BASO # 0.1 10^3/uL (0.0-0.2); BASO % 0.8 % (0.0-1.0); EOS # 0.3 10^3/uL (0.0-0.50); EOS % 5.4 % (0.0-3.0); HEMATOCRIT 44.2 % (42.0-52.0); HEMOGLOBIN 15.4 g/dl (14.0-18.0); IMMATURE GRANULOCYTE % 0.3 % (0-3.0); LYMPH # 2.4 10^3/uL (1.5-6.5); LYMPH % 37.9 % (24.0-44.0); MEAN CORPUSCULAR HEMOGLOBIN 31.6 pg (27.0-33.0); MEAN CORPUSCULAR HGB CONC 34.8 g/dl (32.0-36.5); MEAN CORPUSCULAR VOLUME 90.8 fl (80.0-96.0); MONO # 0.6 10^3/uL (0.0-0.8); MONO % 8.9 % (0.0-5.0); NEUTROPHILS % 46.7 % (36.0-66.0); PLATELET COUNT, AUTOMATED 330 10^3/uL (150-450); RED BLOOD COUNT 4.87 10^6/uL (4.30-6.10); RED CELL DISTRIBUTION WIDTH 11.6 % (11.5-14.5); WHITE BLOOD COUNT 6.3 10^3/uL (4.0-10.0)
[2017-07-26 16:24] LABS: C REACTIVE PROTEIN QUANTITATIV < 0.30 MG/DL (0.00-0.30)
[2017-07-26 17:21] LABS: ERYTHROCYTE SEDIMENTATION RATE 4 mm/hr (0-15)
== END ==
LOC: M SFHCPLAZ 13:50
DX: M86.112 Other acute osteomyelitis, left shoulder (principal)
CPT/HCPCS: 86140

== ENCOUNTER → 2017-09-04 | Outpatient (REF) | payer OTHER ==
[2017-09-04 11:07] LABS: BASO # 0.1 10^3/uL (0.0-0.2); BASO % 0.8 % (0.0-1.0); EOS # 0.4 10^3/uL (0.0-0.50); EOS % 6.3 % (0.0-3.0); HEMATOCRIT 44.5 % (42.0-52.0); HEMOGLOBIN 15.4 g/dl (13.5-17.5); IMMATURE GRANULOCYTE % 0.5 % (0-3.0); LYMPH # 2.3 10^3/uL (1.5-6.5); LYMPH % 35.7 % (24.0-44.0); MEAN CORPUSCULAR HGB CONC 34.6 g/dl (32.0-36.5); MEAN CORPUSCULAR VOLUME 92.5 fl (80.0-96.0); MONO # 0.6 10^3/uL (0.0-0.8); MONO % 8.7 % (0.0-5.0); PLATELET COUNT, AUTOMATED 257 10^3/uL (150-450); RED BLOOD COUNT 4.81 10^6/uL (4.30-6.10); RED CELL DISTRIBUTION WIDTH 12.2 % (11.5-14.5); WHITE BLOOD COUNT 6.3 10^3/uL (4.0-10.0)
[2017-09-04 11:26] LABS: C REACTIVE PROTEIN QUANTITATIV < 0.30 MG/DL (0.00-0.30)
[2017-09-04 12:12] LABS: ERYTHROCYTE SEDIMENTATION RATE 3 mm/hr (0-15)
== END ==
LOC: M SFHCPLAZ 08:31
DX: M86.112 Other acute osteomyelitis, left shoulder (principal)

== ENCOUNTER 2017-11-26 23:56 | Emergency (ER) | payer OTHER | END 2017-11-27 03:28 | disposition home or self-care (01) | LOC: M ED 23:56 | DX: S61.411A Laceration without foreign body of right hand, initial encounter (principal); W22.8XXA Striking against or struck by other objects, initial encounter; Y92.099 Unspecified place in other non-institutional residence as the place of occurrence of the external cause; Y93.9 Activity, unspecified; Y99.9 Unspecified external cause status; Z91.010 Allergy to peanuts; Z91.018 Allergy to other foods | CPT/HCPCS: 73130 ==